=== PATIENT | male | born 1980 | race Caucasian/White ===

== ENCOUNTER 2017-09-01 16:49 | Emergency (ER) | payer OTHER ==
[2017-09-01 17:15] VITALS: BP 104/63; TEMP 96; BMI 24.3
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
[2017-09-01] MEDS: MORPHINE 2 MG/ML SYRINGE IM STA (19:11)
[2017-09-01] MEDS: ZOFRAN ODT PO STA (19:15)
== END 2017-09-01 19:51 | disposition home or self-care (01) ==
LOC: ED 16:49
DX: M54.5 Low back pain (principal); F17.210 Nicotine dependence, cigarettes, uncomplicated; V89.2XXD Person injured in unspecified motor-vehicle accident, traffic, subsequent encounter
CPT/HCPCS: 96372; 99283